=== PATIENT | male | born 1955 | race Caucasian/White ===

== ENCOUNTER → 2025-03-06 07:58 | Outpatient (CLI) | payer OTHER, SELFPAY ==
[2025-03-06 08:45] LABS: Add Manual Diff / Slide Review NO; Hematocrit 37.5 % (41-53); Hemoglobin 13.0 g/dL (13.5-17.5); Lymphocytes Absolute Auto 1600 /uL (1100-4500); Mean Corpuscular HGB Conc 34.7 % (30-36); Mean Corpuscular Hemoglobin 30.9 PG (26-34); Mean Corpuscular Volume 89.1 fL (80-100); Platelet Count 210 X10^3/uL (150-400)
[2025-03-06 08:57] LABS: HEMOLYSIS < 15 (0-50); Iron 88 ug/dL (49-181)
[2025-03-06 08:58] LABS: Alanine Aminotransferase 36 IU/L (<50); Albumin 4.4 g/dL (3.5-5.0); Albumin Globulin Ratio 1.9 (1.0-2.8); Alkaline Phosphatase 62 U/L (38-126); Blood Urea Nitrogen 23 mg/dL (9-20); Calcium 9.4 mg/dL (8.4-10.2); Carbon Dioxide 26 mmol/L (22-32); Chloride 106 mmol/L (98-107); Cholesterol 154 mg/dL (140-199); Estimated Glomerular Filt Rate > 60 mL/min (>60); Globulin 2.3 g/dL (1.7-4.1); Glucose 109 mg/dL (70-99); HDL Cholesterol 40 mg/dL (40-60); HEMOLYSIS < 15 (0-50); Potassium 4.6 mmol/L (3.4-5.1); Sodium 138 mmol/L (137-145); Total Protein 6.7 g/dL (6.3-8.2); Triglycerides 139 mg/dL (35-150)
[2025-03-06 09:09] LABS: Percent Iron Saturation 30 % (20-50); Total Iron Binding Capacity 294 ug/dL (261-462); Transferrin 237 mg/dL (206-381)
[2025-03-06 09:33] LABS: Ferritin 56 ng/mL (18-464)
== END ==
PROVIDERS: PCP Family Medicine; Referring Provider Family Medicine; Visit Provider Family Medicine
DX: N52.9 Male erectile dysfunction, unspecified (principal); Z87.891 Personal history of nicotine dependence; Z86.39 Personal history of other endocrine, nutritional and metabolic disease; Z12.5 Encounter for screening for malignant neoplasm of prostate; E78.5 Hyperlipidemia, unspecified; I10 Essential (primary) hypertension
CPT/HCPCS: 36415; 80053; 80061; 82728; 83540; 83550; 85025; G0103

== ENCOUNTER → 2025-05-27 12:20 | Outpatient (CLI) | payer OTHER, SELFPAY ==
[2025-05-27 13:08] LABS: Add Manual Diff / Slide Review NO; Hematocrit 38.7 % (41-53); Hemoglobin 13.2 g/dL (13.5-17.5); Lymphocytes Absolute Auto 1400 /uL (1100-4500); Mean Corpuscular HGB Conc 34.2 % (30-36); Mean Corpuscular Hemoglobin 30.3 PG (26-34); Mean Corpuscular Volume 88.7 fL (80-100); Platelet Count 260 X10^3/uL (150-400)
[2025-05-27 13:34] LABS: HEMOLYSIS < 15 (0-50); Iron 121 ug/dL (49-181)
[2025-05-27 13:40] LABS: Alanine Aminotransferase 36 IU/L (<50); Albumin 4.5 g/dL (3.5-5.0); Albumin Globulin Ratio 1.7 (1.0-2.8); Alkaline Phosphatase 69 U/L (38-126); Blood Urea Nitrogen 20 mg/dL (9-20); Calcium 9.8 mg/dL (8.4-10.2); Carbon Dioxide 23 mmol/L (22-32); Chloride 104 mmol/L (98-107); Estimated Glomerular Filt Rate > 60 mL/min (>60); Globulin 2.7 g/dL (1.7-4.1); Glucose 111 mg/dL (70-99); HEMOLYSIS < 15 (0-50); Potassium 4.5 mmol/L (3.4-5.1); Sodium 136 mmol/L (137-145); Total Protein 7.2 g/dL (6.3-8.2)
[2025-05-27 13:48] LABS: Hemoglobin A1C% w Est Avg Glu 6.0 % (4.0-6.0)
[2025-05-27 13:49] LABS: Percent Iron Saturation 41 % (20-50); Total Iron Binding Capacity 296 ug/dL (261-462); Transferrin 265 mg/dL (206-381)
[2025-05-27 14:07] LABS: TSH w/ Reflex to FT4 2.29 uIU/mL (0.47-4.68)
[2025-05-27 14:14] LABS: Ferritin 70 ng/mL (18-464)
[2025-05-27 14:26] LABS: Vitamin B12 280 pg/mL (239-931)
[2025-05-27 14:52] LABS: Folate 10.6 ng/mL (2.76-20.0)
== END ==
PROVIDERS: PCP Family Medicine; Referring Provider Family Medicine; Visit Provider Family Medicine
DX: D64.9 Anemia, unspecified (principal); Z86.39 Personal history of other endocrine, nutritional and metabolic disease; E78.5 Hyperlipidemia, unspecified; D72.819 Decreased white blood cell count, unspecified; Z98.890 Other specified postprocedural states; M54.50 Low back pain, unspecified; G89.29 Other chronic pain; N52.9 Male erectile dysfunction, unspecified; I10 Essential (primary) hypertension
CPT/HCPCS: 36415; 80053; 82607; 82728; 82746; 83036; 83540; 83550; 84443; 85025